=== PATIENT | female | born 1960 | race Caucasian/White ===

== ENCOUNTER → 2016-11-03 | Outpatient (CLI) | payer BC ==
--- NOTE | 2016-11-03 14:52 | REPMRS ---
Patient History The patient states she had a clinical breast exam in 11/17 Patient is postmenopausal. Family history of colorectal cancer in father at age 50 or over and breast cancer in mother at age 50 or over. Benign stereotatic loc for ea lesion of the right breast, August 31, 2011. Benign excisional biopsy of the left breast. 2 benign excisional biopsies of the right breast. Digital Woman Screen Mammo: November 03, 2016 - Exam #: [id number] Bilateral CC and MLO view(s) were taken. Technologist: Obdulia Martinez, Technologist Prior study comparison: November 03, 2015, digital woman screen mammo performed at [facility]. September 22, 2014, digital woman screen mammo performed at [facility]. September 11, 2013, digital woman screen mammo performed at [facility]. August 15, 2012, digital woman screen mammo performed at [facility]. December 11, 2008, bilateral bilat screen digital mammo performed at [facility]. FINDINGS: The breast tissue is heterogeneously dense. This may lower the sensitivity of mammography. There has been no change in the appearance of the mammogram from the prior studies. There is a moderate amount of residual fibroglandular tissue which is fairly symmetric. There is no interval development of dominant mass, architectural distortion, or clustered microcalcification typical of malignancy. Two stereo clips in upper outer quadrant right breast unchanged. Stable benign group of calcifications medial to clips in right breast dating back to 2004 mammo. Scattered lymph nodes are seen in the left axilla. No significant changes when compared with prior studies. ASSESSMENT: BI-RADS/ACR category 2 mammogram. Benign finding(s). Recommendation Routine screening mammogram in 1 year (for women over age 40). This mammogram was interpreted with the aid of an FDA-approved computer-aided dectection system. A. Negative x-ray reports should not delay biopsy if a dominant or clinically suspicious mass is present. B. Four to eight percent of cancers are not identified by mammography. C. Adenosis and dense breast may obscure an underlying neoplasm. Electronically Signed By: Prashant Ann MD 11/03/16 [id number]
== END ==
LOC: M WHC 12:49
PROVIDERS: ATTEND Internal Medicine
DX: Z12.31 Encounter for screening mammogram for malignant neoplasm of breast (principal)

== ENCOUNTER → 2016-11-03 | Outpatient (REF) | payer BC | LOC: M SFHCWAGY 13:14 | PROVIDERS: ATTEND Nurse Practitioner Family | DX: Z01.419 Encounter for gynecological examination (general) (routine) without abnormal findings (principal) ==

== ENCOUNTER → 2016-12-12 | Outpatient (REF) | payer BC | LOC: M SFHCWAGY 11:55 | PROVIDERS: ATTEND Nurse Practitioner Women's Health | DX: R87.810 Cervical high risk human papillomavirus (HPV) DNA test positive (principal) ==

== ENCOUNTER → 2017-01-24 | Outpatient (CLI) | payer BC ==
--- NOTE | 2017-01-26 09:52 | DEXA ---
AP SPINE L1 - L4 0.959 -1.9 -0.9 LT FEMUR TOTAL 0.735 -2.2 -1.4 RT FEMUR TOTAL 0.772 -1.9 -1.1 TOTAL BODY TOTAL OTHER DUAL FEMUR FRAX* ASSESSMENT Risk factors: 10 year probability of fracture Major osteoporotic fracture % Hip fracture % COMMENTS: There is low bone density of the spine and hips. The increased density of the spine does not represent a significant change. The decreased density of the left hip does represent a significant change. The decreased density of the right hip does not represent a significant change. The density of the spine has decreased 9.2% since the initial exam on 03/2010. The spine density has increased 0.2% since the most recent exam on 09/2014. The density of the left hip has decreased 6.8% since the initial exam on 2009. The density of the left hip has decreased 3.0% since the most recent exam on 2014. The density of the right hip has decreased 6.2% since the initial exam on 2009. The density of the right hip has decreased 1.2% since the most recent exam on 2014. FOLLOW-UP: Recommendation for the next bone density exam: 2 years. ALEJANDRO
== END ==
LOC: M WHC 14:31
PROVIDERS: ATTEND Internal Medicine
DX: M81.0 Age-related osteoporosis without current pathological fracture (principal)

== ENCOUNTER → 2017-03-09 | Outpatient (REF) | payer BC | LOC: M LAB REF 20:48 | PROVIDERS: ATTEND Dermatology | DX: B35.1 Tinea unguium (principal) ==

== ENCOUNTER → 2017-06-13 | Outpatient (REF) | payer BC ==
[2017-06-13 17:58] LABS: CHLAMYDIA DNA AMPLIFICATION NEGATIVE (NEGATIVE); GC DNA AMPLIFICATION NEGATIVE (NEGATIVE)
[2017-06-14 09:35] LABS: HEPATITIS B SURFACE ANTIGEN NEGATIVE (NEGATIVE)
[2017-06-14 09:52] LABS: HEPATITIS C VIRUS ABY INDEX 0.1 INDEX (<0.8)
[2017-06-14 09:53] LABS: HIV 1&2 SCREEN CENTAUR NEGATIVE (NEGATIVE)
== END ==
LOC: M SFHCWAGY 11:57
DX: Z11.3 Encounter for screening for infections with a predominantly sexual mode of transmission (principal)

== ENCOUNTER → 2017-11-07 | Outpatient (CLI) | payer BC | LOC: M WHC 13:04 | DX: Z12.31 Encounter for screening mammogram for malignant neoplasm of breast (principal) | CPT/HCPCS: 77067 ==

== ENCOUNTER → 2017-11-07 | Outpatient (REF) | payer BC ==
[2017-11-09 14:17] LABS: HPV HYBRID CAPTURE II Positive (Negative)
== END ==
LOC: M SFHCWAGY 13:34
DX: Z12.4 Encounter for screening for malignant neoplasm of cervix (principal)
CPT/HCPCS: G0123

== ENCOUNTER → 2017-12-18 | Outpatient (REF) | payer BC | LOC: M SFHCWAGY 15:31 | DX: R87.810 Cervical high risk human papillomavirus (HPV) DNA test positive (principal); R87.610 Atypical squamous cells of undetermined significance on cytologic smear of cervix (ASC-US) | CPT/HCPCS: 88304 ==

== ENCOUNTER 2018-02-27 07:55 | Day surgery (SDC) | payer BC ==
[2018-02-27] MEDS ORDERED: LIDOCAINE 2% INJ 100 MG/5 ML SDV (FOR ANES.) As Ordered (08:07)
[2018-02-27] MEDS ORDERED: PROPOFOL 200 MG/20 ML VIAL As Ordered ×2 (08:07→09:11)
[2018-02-27] MEDS: NS 1,000 ML IV (08:15)
== END 2018-02-27 10:00 | disposition home or self-care (01) ==
LOC: M OPP 07:55
DX: Z12.11 Encounter for screening for malignant neoplasm of colon (principal); K64.0 First degree hemorrhoids; Z80.0 Family history of malignant neoplasm of digestive organs; Z98.890 Other specified postprocedural states
CPT/HCPCS: G0105

== ENCOUNTER → 2019-01-24 | Outpatient (REF) | payer BC ==
[~2019-01-24] MED LIST: VITA500046 PO
[2019-01-26 15:57] LABS: HPV HYBRID CAPTURE II Positive (Negative)
== END ==
LOC: M SFHCWAGY 15:46
PROVIDERS: ATTEND Nurse Practitioner Family
DX: Z12.4 Encounter for screening for malignant neoplasm of cervix (principal); R87.610 Atypical squamous cells of undetermined significance on cytologic smear of cervix (ASC-US)
CPT/HCPCS: 87624; G0123

== ENCOUNTER → 2019-01-24 | Outpatient (CLI) | payer BC ==
--- NOTE | 2019-01-24 16:58 | REPMRS ---
Patient History The patient states she had a clinical breast exam in 01/2019. Patient is postmenopausal. Family history of endometrial cancer at age 50 or over and breast cancer at age 50 or over in mother, colorectal cancer at age 50 or over in father, endometrial cancer at age 50 or over in maternal aunt, breast cancer at age 43 in paternal cousin. Benign stereotatic loc for ea lesion of the right breast, August 31, 2011. Benign excisional biopsy of the left breast. 2 benign excisional biopsies of the right breast. No Hormone Replacement Therapy 3D TOMOSYNTHESIS WAS PERFORMED. The [facility] lifetime risk for breast cancer is 16.7%. Digital Woman Screen Mammo: January 24, 2019 - Exam #: [id number] Bilateral CC and MLO view(s) were taken. Technologist: Anabelle Woodsologist Prior study comparison: November 07, 2017, bilateral digital woman screen mammo performed at [facility]. November 03, 2016, digital woman screen mammo performed at [facility]. FINDINGS: There are scattered fibroglandular densities. There has been no change in the appearance of the mammogram from the prior studies. There is a mild amount of residual fibroglandular tissue which is fairly symmetric. There is no interval development of dominant mass, architectural distortion, or clustered microcalcification suggestive of malignancy. Assessment: BI-RADS/ACR category 1 mammogram. Negative Mammogram. Recommendation Routine screening mammogram in 1 year (for women over age 40). This mammogram was interpreted with the aid of an FDA-approved computer-aided dectection system. Electronically Signed By: Sherman Mccoy MD 01/24/19 [id number]
== END ==
LOC: M WHC 15:14
PROVIDERS: ATTEND Nurse Practitioner Family
DX: Z12.31 Encounter for screening mammogram for malignant neoplasm of breast (principal); Z78.0 Asymptomatic menopausal state; Z80.41 Family history of malignant neoplasm of ovary; Z80.3 Family history of malignant neoplasm of breast

== ENCOUNTER → 2019-03-07 | Outpatient (CLI) | payer BC ==
--- NOTE | 2019-03-12 13:28 | DEXA ---
AP SPINE L1 - L4 0.928 -2.1 -1.0 LT FEMUR TOTAL 0.713 -2.3 -1.4 LT NECK 0.734 -2.2 -1.0 RT FEMUR TOTAL 0.733 -2.2 -1.3 RT NECK 0.752 -2.1 -0.8 TOTAL BODY TOTAL OTHER COMMENTS: There is low bone density of the spine and hips. The decreased density of the spine does represent a significant change. The decreased density of the left hip does represent a significant change. The decreased density of the right hip does represent a significant change. The density of the spine has decreased 12.1% since the initial exam on 03/10/2010. The spine density has decreased 3.2% since the most recent exam on 01/24/2017. The density of the left hip has decreased 9.6% since the initial exam on 03/10/2010. The density of the left hip has decreased 3.0% since the most recent exam on 01/24/2017. The density of the right hip has decreased 10.9% since the initial exam on 03/10/2010. The density of the right hip has decreased 5.1% since the most recent exam on 01/24/2017. FOLLOW-UP: Recommendation for the next bone density exam: 2 years. ALEJANDRO
== END ==
LOC: M WHC 15:14
PROVIDERS: ATTEND Nurse Practitioner Family
DX: M85.852 Other specified disorders of bone density and structure, left thigh (principal)

== ENCOUNTER → 2019-03-14 | Outpatient (REF) | payer BC | LOC: M LAB REF 19:01 | PROVIDERS: ATTEND Dermatology | DX: B08.1 Molluscum contagiosum (principal) ==

== ENCOUNTER → 2019-06-24 | Outpatient (CLI) | payer OTHER ==
--- NOTE | 2019-06-24 08:50 | REP ---
Clinical: Epigastric pain. Technique: Real time linares scale and color evaluation using curved array transducer. Findings: Liver and pancreas are normal in contour, size, echogenicity without focal hepatic or pancreatic lesion identified. Evidence of prior cholecystectomy. Compensatory biliary ductal dilatation noted with the common bile duct measuring 10.5 mm diameter. No intrahepatic biliary dilatation is appreciated. The right kidney is normal in appearance and reniform shape without hydronephrosis and measures 11.2 x 4.3 x 3.9 cm. No ascites. Impression: Prior cholecystectomy. Otherwise normal right upper quadrant ultrasound. Electronically Signed by Jt Soto MD 06/24/2019 08:41 A
== END ==
LOC: M RAD 07:08
PROVIDERS: ATTEND Internal Medicine
DX: R10.13 Epigastric pain (principal); Z90.49 Acquired absence of other specified parts of digestive tract

== ENCOUNTER → 2020-02-26 | Outpatient (CLI) | payer OTHER ==
--- NOTE | 2020-02-26 16:42 | REPMRS ---
Patient History The patient states she had a clinical breast exam in 12/21 Family history of endometrial cancer at age 50 or over and breast cancer at age 50 or over in mother, colorectal cancer at age 50 or over in father, endometrial cancer at age 50 or over in maternal aunt, breast cancer at age 43 in paternal cousin. Benign stereotatic loc for ea lesion of the right breast, August 31, 2011. Benign excisional biopsy of the left breast. 2 benign excisional biopsies of the right breast. No Hormone Replacement Therapy 3D TOMOSYNTHESIS WAS PERFORMED. The [facility] lifetime risk for breast cancer is 16.2[facility] Digital Woman Screen Mammo: February 26, 2020 - Exam #: [id number] Bilateral CC and MLO view(s) were taken. Technologist: Obdulia Martinez, Technologist Prior study comparison: January 24, 2019, bilateral digital woman screen mammo performed at [facility]. November 07, 2017, bilateral digital woman screen mammo performed at [facility]. FINDINGS: There are scattered fibroglandular densities. There has been no change in the appearance of the mammogram from the prior studies. There is a mild amount of residual fibroglandular tissue which is fairly symmetric. There is no interval development of dominant mass, architectural distortion, or clustered microcalcification suggestive of malignancy. Assessment: BI-RADS/ACR category 1 mammogram. Negative Mammogram. Recommendation Routine screening mammogram in 1 year (for women over age 40). This mammogram was interpreted with the aid of an FDA-approved computer-aided dectection system. Electronically Signed By: Sherman Mccoy MD 02/26/20 [id number]
== END ==
LOC: M WHC 15:30
PROVIDERS: ATTEND Internal Medicine
DX: Z12.31 Encounter for screening mammogram for malignant neoplasm of breast (principal); M85.80 Other specified disorders of bone density and structure, unspecified site; Z80.3 Family history of malignant neoplasm of breast; Z80.49 Family history of malignant neoplasm of other genital organs; Z80.0 Family history of malignant neoplasm of digestive organs; Z86.018 Personal history of other benign neoplasm

== ENCOUNTER → 2020-12-14 | Outpatient (REF) | payer OTHER, BC ==
[2020-12-14 18:26] LABS: APPEARANCE, URINE CLEAR (CLEAR); BACTERIA, URINE AUTO NEGATIVE (NEGATIVE); BILIRUBIN, URINE AUTO NEGATIVE (NEGATIVE); BLOOD, URINE BLOOD NEGATIVE (NEGATIVE); COLOR, URINE STRAW (YELLOW); GLUCOSE, URINE (UA) AUTO NEGATIVE (NEGATIVE); KETONE, URINE AUTO NEGATIVE (NEGATIVE); LEUKOCYTE ESTERASE, URINE AUTO 3+ (NEGATIVE); NITRITE, URINE AUTO NEGATIVE (NEGATIVE); PROTEIN, URINE AUTO NEGATIVE (NEGATIVE); RBC, URINE AUTO 0 /HPF (0-3); SPECIFIC GRAVITY URINE AUTO 1.005 (1.002-1.035); SQUAMOUS EPITHELIAL CELL UR AU 0 /HPF (0-6); UROBILINOGEN, URINE AUTO 0.2 mg/dL (0.0-2.0); WBC, URINE AUTO 26 /HPF (0-3)
== END ==
LOC: M LAB REF 17:46
PROVIDERS: ATTEND Obstetrics & Gynecology
DX: N39.0 Urinary tract infection, site not specified (principal)

== ENCOUNTER → 2021-01-21 | Outpatient (REF) | payer OTHER, BC | LOC: M LAB REF 16:41 | PROVIDERS: ATTEND Internal Medicine | DX: R10.9 Unspecified abdominal pain (principal) ==

== ENCOUNTER → 2021-03-09 | Outpatient (CLI) | payer BC ==
[~2021-03-09] MED LIST changes: +GASTROGRAFIN SOLUTION 30ML (Q9963) As Ordered ONE; +ISOVUE-370 76% 100ML VIAL As Ordered ONE
--- NOTE | 2021-03-09 17:16 | REP ---
INDICATION: UPPER ABD PAIN. COMPARISON: None TECHNIQUE: Axial contrast-enhanced images from the lung bases to the pubic symphysis using 100 cc Isovue 370 intravenous contrast material. . This CT examination was performed using the following dose reduction techniques: Automated exposure control, adjustment of mA and/or kv according to the patient's size, and the use of iterative reconstruction technique. FINDINGS: Lung bases are clear. Visualized heart and pericardium are normal. Liver, spleen, pancreas, bilateral adrenal glands and kidneys are normal. Patient is status post cholecystectomy. The enteric system including stomach, small, and large bowel appears normal. No evidence for obstruction or acute inflammatory process. Normal terminal ileum and appendix are identified in the right lower quadrant. Pelvis demonstrates normal bladder and mildly prominent uterus/adnexa. No ascites. No free air. No intraperitoneal or retroperitoneal adenopathy. Abdominal aorta and vasculature appear normal. Musculoskeletal structures are intact and without acute osseous abnormality. IMPRESSION: No acute abdominopelvic pathology appreciated. <Electronically signed by Jt Soto > 03/09/21 [id number]
== END ==
LOC: M RAD 14:55
PROVIDERS: ATTEND Internal Medicine Gastroenterology
DX: R10.10 Upper abdominal pain, unspecified (principal)
CPT/HCPCS: 74177; Q9963; Q9967

== ENCOUNTER → 2021-03-16 | Outpatient (CLI) | payer BC ==
[~2021-03-16] MED LIST changes: -GASTROGRAFIN SOLUTION 30ML (Q9963) As Ordered ONE; -ISOVUE-370 76% 100ML VIAL As Ordered ONE
== END ==
LOC: M WHC 13:02
PROVIDERS: ATTEND Internal Medicine
DX: Z12.31 Encounter for screening mammogram for malignant neoplasm of breast (principal); M85.80 Other specified disorders of bone density and structure, unspecified site; Z80.3 Family history of malignant neoplasm of breast

== ENCOUNTER → 2021-12-27 | Outpatient (CLI) | payer OTHER | LOC: M LABSMTC 10:44 | PROVIDERS: ATTEND Family Medicine | DX: Z20.822 Contact with and (suspected) exposure to COVID-19 (principal) | CPT/HCPCS: 87635; C9803 ==

== ENCOUNTER → 2022-03-17 | Outpatient (CLI) | payer OTHER | LOC: M WHC 13:11 | PROVIDERS: ATTEND Internal Medicine | DX: Z12.31 Encounter for screening mammogram for malignant neoplasm of breast (principal) ==

== ENCOUNTER → 2022-10-14 | Outpatient (REF) | payer OTHER | LOC: M PLALAB 15:09 | PROVIDERS: ATTEND Nurse Practitioner Women's Health | DX: Z12.4 Encounter for screening for malignant neoplasm of cervix (principal); R87.615 Unsatisfactory cytologic smear of cervix; Z87.410 Personal history of cervical dysplasia | CPT/HCPCS: 87624; G0123 ==

== ENCOUNTER → 2022-11-01 | Outpatient (REF) | payer OTHER | LOC: M LAB REF 16:14 | PROVIDERS: ATTEND Physician Assistant | DX: R30.0 Dysuria (principal) ==

== ENCOUNTER → 2022-11-22 | Outpatient (REF) | payer OTHER | LOC: M SFHCWAGY 10:03 | PROVIDERS: ATTEND Specialist | DX: R87.610 Atypical squamous cells of undetermined significance on cytologic smear of cervix (ASC-US) (principal) ==

== ENCOUNTER 2023-02-15 07:30 | Day surgery (SDC) | payer OTHER ==
[~2023-02-15] VITALS: Ht 175.9 cm; Wt 72.6 kg
[~2023-02-15 07:30] MED LIST changes: +CALCCAP4 PO; +ceFAZolin SOD 2 GM in IV 1 EA IV ONE
[2023-02-15 08:04] LABS: HEMATOCRIT 44.3 % (36.0-47.0); HEMOGLOBIN 14.5 g/dl (12.0-15.5); MEAN CORPUSCULAR HEMOGLOBIN 31.1 pg (27.0-33.0); MEAN CORPUSCULAR HGB CONC 32.7 g/dl (32.0-36.5); MEAN CORPUSCULAR VOLUME 95.1 fl (80.0-96.0); PLATELET COUNT, AUTOMATED 252 10^3/uL (150-450); RED BLOOD COUNT 4.66 10^6/uL (4.00-5.40); WHITE BLOOD COUNT 4.5 10^3/uL (4.0-10.0)
[2023-02-15] MEDS ORDERED: ROCURONIUM BROMIDE 50MG/5ML VIAL As Ordered ONE ×2 (10:09→10:15)
[2023-02-15] MEDS ORDERED: fentaNYL 100 MCG/2 ML INJECTION As Ordered ONE (10:09)
[2023-02-15] MEDS ORDERED: KETOROLAC 60MG 2ML VIAL As Ordered ONE (10:09)
[2023-02-15] MEDS ORDERED: dexmedeTOMIDine (4MCG/ML)200MCG/50ML BTL (PRECEDEX) As Ordered ONE (10:09)
[2023-02-15] MEDS ORDERED: SUGAMMADEX SODIUM 500 MG/5 ML VIAL (BRIDION) As Ordered ONE (10:09)
[2023-02-15] MEDS ORDERED: LIDOCAINE 2% 100MG/5ML SDV (FOR ANES.) As Ordered ONE (10:09)
[2023-02-15] MEDS ORDERED: HYDROmorphone HCL 2MG/ML 1ML VIAL As Ordered ONE (10:09)
[2023-02-15] MEDS ORDERED: propofoL 200 MG/20 ML VIAL As Ordered ONE (10:09)
[2023-02-15] MEDS ORDERED: MIDAZOLAM INJ 2MG/2ML VIAL As Ordered ONE (10:09)
[2023-02-15] MEDS ORDERED: ONDANSETRON 4MG 2ML VIAL As Ordered ONE (10:09)
[2023-02-15] MEDS ORDERED: ACETAMINOPHEN 1000MG 100ML IV BAG As Ordered ONE (10:11)
[2023-02-15] MEDS ORDERED: ePHEDrine SULFATE 25 MG/5 ML(5MG/ML) SYRINGE As Ordered ONE (10:36)
[2023-02-15] MEDS ORDERED: ONDANSETRON 4MG 2ML VIAL IV PRN (11:20)
[2023-02-15] MEDS ORDERED: oxyCODONE 5MG TAB PO PRN (11:20)
[2023-02-15] MEDS ORDERED: LR 1,000 ML IV SCH (11:20)
[2023-02-15] MEDS ORDERED: HYDROMORPHONE HCL 0.5 MG/ 0.5 ML SYRINGE IV PRN (11:20)
[2023-02-15] MEDS ORDERED: fentaNYL 100 MCG/2 ML INJECTION IV PRN (11:20)
[2023-02-15] MEDS ORDERED: IBUP-1022 PO (11:51)
[2023-02-15] MEDS ORDERED: OXYC1TAB23 PO (11:52)
[2023-02-15 13:27] VITALS: BP 121/62; TEMP 97.7; O2SAT 99
== END 2023-02-15 14:45 | disposition home or self-care (01) ==
LOC: M SDC 07:30
PROVIDERS: ATTEND Specialist
DX: N87.9 Dysplasia of cervix uteri, unspecified (principal); A60.00 Herpesviral infection of urogenital system, unspecified; D25.9 Leiomyoma of uterus, unspecified; F32.A Depression, unspecified
CPT/HCPCS: 36415; 58571; 85027; 86850; 88307; J0131; J0665; J1100; J1170; J1885; J2250; J2405; J3010; S2900

== ENCOUNTER → 2023-03-21 | Outpatient (CLI) | payer OTHER ==
[~2023-03-21] MED LIST changes: +IBUP-1022 PO; +OXYC1TAB23 PO; -ceFAZolin SOD 2 GM in IV 1 EA IV ONE
== END ==
LOC: M WHC 13:59
PROVIDERS: ATTEND Nurse Practitioner Women's Health
DX: Z12.31 Encounter for screening mammogram for malignant neoplasm of breast (principal)

== ENCOUNTER 2023-08-30 06:54 | Day surgery (SDC) | payer OTHER ==
[~2023-08-30] VITALS: Ht 175.3 cm; Wt 73.9 kg
[~2023-08-30 06:54] MED LIST changes: +ALEN70TA82 PO
[2023-08-30] MEDS: NS 1,000 ML IV ONE (07:21)
[2023-08-30] MEDS ORDERED: LIDOCAINE 2% 100MG/5ML SDV (FOR ANES.) As Ordered ONE (07:34)
[2023-08-30] MEDS ORDERED: propofoL 200 MG/20 ML VIAL As Ordered ONE (07:34)
[2023-08-30 07:51] VITALS: TEMP 97.3
[2023-08-30 08:03] VITALS: BP 115/63; O2SAT 99
== END 2023-08-30 08:07 | disposition home or self-care (01) ==
LOC: M OPP 06:54
PROVIDERS: ATTEND Internal Medicine Gastroenterology
DX: Z12.11 Encounter for screening for malignant neoplasm of colon (principal); Z80.0 Family history of malignant neoplasm of digestive organs; K64.0 First degree hemorrhoids

== ENCOUNTER → 2023-09-22 | Outpatient (REF) | payer OTHER ==
[2023-09-26 12:58] LABS: HPV APTIMA Detected (Not Detected)
== END ==
LOC: M SFHCWAGY 17:07
PROVIDERS: ATTEND Specialist
DX: R87.613 High grade squamous intraepithelial lesion on cytologic smear of cervix (HGSIL) (principal); B97.7 Papillomavirus as the cause of diseases classified elsewhere
CPT/HCPCS: 87624; G0123

== ENCOUNTER → 2023-11-07 | Outpatient (REF) | payer OTHER | LOC: M SFHCWAGY 07:36 | PROVIDERS: ATTEND Specialist | DX: N89.3 Dysplasia of vagina, unspecified (principal) ==

== ENCOUNTER → 2024-04-02 | Outpatient (CLI) | payer OTHER | LOC: M WHC 12:57 | PROVIDERS: ATTEND Specialist | DX: Z12.31 Encounter for screening mammogram for malignant neoplasm of breast (principal) ==

== ENCOUNTER → 2024-05-07 | Outpatient (REF) | payer OTHER ==
[2024-05-09 14:36] LABS: HPV APTIMA Detected (Not Detected)
== END ==
LOC: M SFHCWAGY 17:27
PROVIDERS: ATTEND Specialist
DX: N89.0 Mild vaginal dysplasia (principal); R87.610 Atypical squamous cells of undetermined significance on cytologic smear of cervix (ASC-US)
CPT/HCPCS: 87624; G0123

== ENCOUNTER → 2024-05-14 | Outpatient (REF) | payer OTHER | LOC: M SFHCWAGY 14:44 | PROVIDERS: ATTEND Specialist | DX: N89.3 Dysplasia of vagina, unspecified (principal) ==

== ENCOUNTER → 2024-11-14 | Outpatient (REF) | payer OTHER, MEDICARE ==
[2024-11-21 09:48] LABS: HPV Genotype 16 RNA NOT DETECTED (NOT DETECT); HPV Genotype 18,45 RNA NOT DETECTED (NOT DETECT); HPV VAGINAL DETECTED (NOT DETECT)
== END ==
LOC: M SFHCWAGY 17:04
PROVIDERS: ATTEND Specialist
DX: N89.3 Dysplasia of vagina, unspecified (principal)

== ENCOUNTER → 2024-11-21 | Outpatient (REF) | payer OTHER, MEDICARE | LOC: M PLALAB 13:42 | PROVIDERS: ATTEND Specialist | DX: N89.3 Dysplasia of vagina, unspecified (principal) ==